=== PATIENT | female | born 1950 | race Caucasian/White ===

== ENCOUNTER 2018-01-31 14:03 | Emergency (ER) | payer OTHER ==
[2018-01-31] MEDS ORDERED: ACETAMINOPHEN 325 MG TABLET ONE (16:18)
--- NOTE | 2018-01-31 17:00 | RAD REPORT ---
EXAM DESCRIPTION: Esteban Mcduffie (2 Views)01/31/2018 3:56 pm CLINICAL HISTORY: Cough COMPARISON: None FINDINGS: The lungs appear clear of acute infiltrate. The heart is normal size IMPRESSION: No acute abnormalities displayed
--- NOTE | 2018-01-31 17:22 | ER ---
Nurse's Notes [facility] Name: Zaria Cruz Age: 67 yrs Sex: Female : 1950 Arrival Date: 01/31/2018 Time: 14:06 Bed 19 Private MD: out of town, doctor Diagnosis: Acute pharyngitis Presentation: 01/31 14:09 Presenting complaint: Patient states: sore throat and chills/fever up to 100.0 F since aa5 . Transition of care: patient was not received from another setting of care. Onset of symptoms was January 2018. Risk Assessment: Do you want to hurt yourself or someone else? Patient reports no desire to harm self or others. Initial Sepsis Screen: Does the patient meet any 2 criteria? No. Patient's initial sepsis screen is negative. Does the patient have a suspected source of infection? No. Patient's initial sepsis screen is negative. Care prior to arrival: None. 14:09 Method Of Arrival: Ambulatory aa5 14:09 Acuity: MAYNOR 4 aa5 Historical: - Allergies: 14:12 Sulfa (Sulfonamide Antibiotics); aa5 14:12 Iodine; aa5 14:12 Levaquin; aa5 - PMHx: 14:12 Diabetes - NIDDM; Hypertension; Acid Reflux; Angina; aa5 - PSHx: 14:12 Hysterectomy; aa5 - Immunization history:: Adult Immunizations not up to date. - Social history:: Smoking status: Patient uses tobacco products, smokes one-half pack cigarettes per day. - Ebola Screening: : No symptoms or risks identified at this time. Screenin:37 Abuse screen: Denies threats or abuse. Nutritional screening: No deficits noted. em Tuberculosis screening: No symptoms or risk factors identified. Fall Risk None identified. Assessment: 15:31 General: Appears in no apparent distress. uncomfortable, Behavior is calm, cooperative. em Pain: Complains of pain in throat. Neuro: Level of Consciousness is awake, alert, obeys commands, Oriented to person, place, time, situation. Cardiovascular: Capillary refill < 3 seconds Patient's skin is warm and dry. Respiratory: Airway is patent Respiratory effort is even, unlabored, Respiratory pattern is regular, symmetrical, Breath sounds are clear bilaterally. GI: Abdomen is flat. : No signs and/or symptoms were reported regarding the genitourinary system. EENT: Throat is reddened. Derm: Skin is intact, Skin is pink, warm \T\ dry. Musculoskeletal: Range of motion: intact in all extremities. 16:00 Reassessment: Patient appears in no apparent distress at this time. Patient and/or iw family updated on plan of care and expected duration. Pain level reassessed. I agree with above assessment by Ramsey Covington LVN. 17:43 Reassessment: Patient appears in no apparent distress at this time. Patient and/or em family updated on plan of care and expected duration. Pain level reassessed. Patient is alert, oriented x 3, equal unlabored respirations, skin warm/dry/pink. Patient states feeling better. Vital Signs: 14:10 BP 115 / 71; Pulse 78; Resp 16 S; Temp 98.6(O); Pulse Ox 99% on R/A; aa5 14:12 Weight 70.31 kg (R); Height 5 ft. 6 in. (167.64 cm) (R); Pain 5/10; aa5 16:00 BP 123 / 60; Pulse 81; Resp 16; Temp 99.6(O); Pulse Ox 99% on R/A; Pain 5/10; em 17:43 BP 106 / 60; Pulse 74; Resp 18; Temp 99.3(O); Pulse Ox 100% on R/A; em 14:12 Body Mass Index 25.02 (70.31 kg, 167.64 cm) aa5 ED Course: 14:06 Patient arrived in ED. mr 14:06 out of town, doctor is Private Physician. mr 14:09 Triage completed. aa5 14:09 Arm band placed on. aa5 14:56 Greg Stephenson PA is PHCP. jmm 14:56 Fernando Webb MD is Attending Physician. jm 15:27 Ramsey Covington LVN is Primary Nurse. em 15:54 Chest Pa And Lat (2 Views) XRAY In Process Unspecified. EDMS 16:26 Throat Culture Sent. aj 16:26 Strep swab sent to lab. 5 16:37 Patient has correct armband on for positive identification. Bed in low position. Call em light in reach. Side rails up X2. Adult w/ patient. 16:37 No provider procedures requiring assistance completed. em 17:42 Patient did not have IV access during this emergency room visit. em Administered Medications: 16:19 Drug: Tylenol 650 mg Route: PO; em 17:31 Follow up: Response: No adverse reaction em Outcome: 17:22 Discharge ordered by MD. [facility] 17:42 Discharged to home ambulatory, with friend. em 17:42 Condition: good 17:42 Discharge instructions given to patient, Instructed on discharge instructions, follow up and referral plans. medication usage, Demonstrated understanding of instructions, follow-up care, medications, Prescriptions given X 1. 17:43 Patient left the ED. em Signatures: Dispatcher [employer] EDMS Ruthann Murrell, RN Greg Lara PA PA jmm Rivera, Maria mr Adria, Ramsey, GERICARE AIDE GERICARE AIDE em Melanie Romo RN RN iw Calderon, Audri, RN RN aa5 Martinez, Maria 5 Corrections: (The following items were deleted from the chart) 16:50 14:31 General: Appears in no apparent distress. uncomfortable, Behavior is calm, em cooperative, em 16: 14:31 Pain: Complains of pain in throat em em 16: 14:31 Neuro: Level of Consciousness is awake, alert, obeys commands, Oriented to em person, place, time, situation, em 16: 14:31 Cardiovascular: Capillary refill < 3 seconds Patient's skin is warm and dry. em em 16: 14:31 Respiratory: Airway is patent Respiratory effort is even, unlabored, Respiratory em pattern is regular, symmetrical, Breath sounds are clear bilaterally. em : 14:31 GI: Abdomen is flat, em em 14:31 : No signs and/or symptoms were reported regarding the genitourinary system. em em : 14:31 EENT: Throat is reddened em em 14:31 Derm: Skin is intact, Skin is pink, warm \T\ dry. em em : 14:31 Musculoskeletal: Range of motion: intact in all extremities, em em
--- NOTE | 2018-01-31 17:22 | EDPHYS ---
Physician Documentation [facility] Name: Zaria Cruz Age: 67 yrs Sex: Female : 1950 Arrival Date: 01/31/2018 Time: 14:06 Bed 19 Private MD: out of town, doctor ED Physician Fernando Webb HPI: 01/31 15:27 This 67 yrs old Female presents to ER via Ambulatory with complaints of Sore jmm Throat. 15:27 The patient presents with sore throat. Onset: The symptoms/episode began/occurred jmm gradually, 2 day(s) ago. Associated signs and symptoms: Pertinent positives: cough, fever. This is a 67 year old female with a history of DM, HTN, that presents to the ED with 2 days of sore throat with fever beginning 2 days ago. Patient stated she noticed white patches in her throat. Patient also complains of cough. . Historical: - Allergies: 14:12 Sulfa (Sulfonamide Antibiotics); aa5 14:12 Iodine; aa5 14:12 Levaquin; aa5 - PMHx: 14:12 Diabetes - NIDDM; Hypertension; Acid Reflux; Angina; aa5 - PSHx: 14:12 Hysterectomy; aa5 - Immunization history:: Adult Immunizations not up to date. - Social history:: Smoking status: Patient uses tobacco products, smokes one-half pack cigarettes per day. - Ebola Screening: : No symptoms or risks identified at this time. ROS: 15:27 Abdomen/GI: Negative for abdominal pain, nausea, vomiting, diarrhea, and constipation, [facility] Back: Negative for injury and pain. 15:27 Constitutional: Positive for fever. 15:27 ENT: Positive for sore throat. 15:27 Respiratory: Positive for cough. 15:27 All other systems are negative. Exam: 15:27 Head/Face: atraumatic. jmm 15:27 Constitutional: The patient appears in no acute distress, alert, awake. 15:27 ENT: Posterior pharynx: erythema, that is moderate, vesicles noted to the posterior pharynx, no uvular shift, no peritonsillar mass appreciated. 15:27 Neck: Lymph nodes: lymphadenopathy is appreciated, anterior cervical nodes. 15:27 Cardiovascular: Rate: normal, Rhythm: regular. 15:27 Respiratory: the patient does not display signs of respiratory distress, Respirations: normal, Breath sounds: are clear throughout. 15:27 Musculoskeletal/extremity: ROM: intact in all extremities. 15:27 Skin: Appearance: Color: normal in color. 15:27 Neuro: Orientation: is normal, Mentation: is normal, Memory: is normal. 15:27 Psych: Behavior/mood is pleasant, cooperative. Vital Signs: 14:10 BP 115 / 71; Pulse 78; Resp 16 S; Temp 98.6(O); Pulse Ox 99% on R/A; aa5 14:12 Weight 70.31 kg (R); Height 5 ft. 6 in. (167.64 cm) (R); Pain 5/10; aa5 16:00 BP 123 / 60; Pulse 81; Resp 16; Temp 99.6(O); Pulse Ox 99% on R/A; Pain 5/10; em 17:43 BP 106 / 60; Pulse 74; Resp 18; Temp 99.3(O); Pulse Ox 100% on R/A; em 14:12 Body Mass Index 25.02 (70.31 kg, 167.64 cm) aa5 MDM: 15:27 Patient medically screened. [facility] 17:15 Data reviewed: vital signs, nurses notes, lab test result(s), radiologic studies, plain [facility] films. Counseling: I had a detailed discussion with the patient and/or guardian regarding: the historical points, exam findings, and any diagnostic results supporting the discharge/admit diagnosis, lab results, radiology results, to return to the emergency department if symptoms worsen or persist or if there are any questions or concerns that arise at home. 17:15 ED course: Patient is alert, in no respiratory distress, non toxic in appearance in the [facility] ED. Symptoms appear consistent with a viral pharyngitis. Chest xray clear. . 01/31 15:28 Order name: Strep; Complete Time: 16:00 [facility] 01/31 16:00 Order name: Throat Culture [facility] 01/31 15:28 Order name: Chest Pa And Lat (2 Views) XRAY; Complete Time: 17:12 [facility] Administered Medications: 16:19 Drug: Tylenol 650 mg Route: PO; em 17:31 Follow up: Response: No adverse reaction em Disposition: 17:52 Co-signature as Attending Physician, Fernando Webb MD. rn Disposition: 01/31/18 17:22 Discharged to Home. Impression: Acute pharyngitis. - Condition is Stable. - Discharge Instructions: Pharyngitis. - Prescriptions for Lidocaine Viscous - take 5 milliliter by ORAL route every 4-6 hours; 100 milliliter. - Medication Reconciliation Form, Thank You Letter, Antibiotic Education, Prescription Opioid Use form. - Follow up: Private Physician; When: 2 - 3 days; Reason: Continuance of care. Signatures: Dispatcher [employer] Greg Franklin PA PA jmm Munoz, Edgar, [employer] em Fernando Webb MD MD rn Lynda Ryan RN RN aa5 Corrections: (The following items were deleted from the chart) 17:43 17:22 01/31/2018 17:22 Discharged to Home. Impression: Acute pharyngitis. Condition is em Stable. Forms are Medication Reconciliation Form, Thank You Letter, Antibiotic Education, Prescription Opioid Use. Follow up: Private Physician; When: 2 - 3 days; Reason: Continuance of care. rashawn
== END 2018-01-31 17:43 | disposition home or self-care (01) ==
LOC: ER 14:03
DX: J02.9 Acute pharyngitis, unspecified (principal); E11.9 Type 2 diabetes mellitus without complications; I10 Essential (primary) hypertension; K21.9 Gastro-esophageal reflux disease without esophagitis; I20.9 Angina pectoris, unspecified; F17.210 Nicotine dependence, cigarettes, uncomplicated; Z88.2 Allergy status to sulfonamides; Z88.1 Allergy status to other antibiotic agents; Z91.041 Radiographic dye allergy status
CPT/HCPCS: 71046; 87070; 87081; 99284